=== PATIENT | male | born 1930 | race Caucasian/White ===

== ENCOUNTER 2018-11-23 23:24 | Observation (INO) | payer MEDICARE, MEDICAID ==
--- NOTE | 2018-11-23 23:55 | EDM.PDOC ---
ED HPI GENERAL MEDICAL PROBLEM - General Chief Complaint: General Stated Complaint: WEAKNESS Time Seen by Provider: 11/23/18 23:24 Source of Information: Reports: Patient, EMS History Limitations: Reports: Physical Impairment - History of Present Illness INITIAL COMMENTS - FREE TEXT/NARRATIVE: 88 y.o.w.m with H/O Sleep apnea, Chronic renal insufficiency, came to the ed by ems after he was found next to his bed on the floor. He could not getup by himself, called for help and the ems as well. Pt is a poor historian and could not describe what happened,. His stated, Pt defecated while on the floor or before that . On arrival, pt denied and pain. pt was Ox3, was able to hold his upper and lower extremity up for 5 seconds, showed, however, some weakness at his left lower extremity. No other acute medical issues. BP 145/78 RR 18 Pulse ox on RA 96%, Pulse 82 Temp 36.8 Onset Date: 11/23/18 Onset Time: 18:00 Duration: Hour(s): Location: Reports: Generalized Severity: Moderate Improves with: Reports: Rest Worsens with: Reports: Movement Context: Reports: Other (OBESITY, WEAKNESS) Associated Symptoms: Reports: Weakness Bilateral Knee Pain Score (Numeric/FACES): 4 - Related Data Allergies Allergy/AdvReac Type Severity Reaction Status Date / Time No Known Allergies Allergy Verified 11/24/18 01:04 Home Meds: Home Meds Calcitriol 0.25 mcg PO MOWEFR 11/24/18 [History] Chlorthalidone 25 mg PO DAILY 11/24/18 [History] Furosemide 20 mg PO DAILY 11/24/18 [History] Metoprolol Succinate [Toprol XL] 25 mg PO DAILY 11/24/18 [History] Potassium Chloride [Klor-Con 10] 10 meq PO DAILY 11/24/18 [History] ED ROS GENERAL - Review of Systems Review Of Systems: See Below Constitutional: Reports: Weakness, Weight Gain HEENT: Reports: No Symptoms Respiratory: Reports: No Symptoms Cardiovascular: Reports: No Symptoms Endocrine: Reports: No Symptoms GI/Abdominal: Reports: No Symptoms : Reports: No Symptoms Musculoskeletal: Reports: No Symptoms Skin: Reports: No Symptoms Neurological: Reports: Difficulty Walking, Gait Disturbance Psychiatric: Reports: No Symptoms Hematologic/Lymphatic: Reports: No Symptoms Immunologic: Reports: No Symptoms ED EXAM, GENERAL - Physical Exam Exam: See Below Exam Limited By: No Limitations General Appearance: Alert, WD/WN, Obese (MORBID) Eye Exam: Bilateral Eye: Normal Inspection Ears: Normal External Exam Ear Exam: Bilateral Ear: Auricle Normal Nose: Normal Inspection, Normal Mucosa, No Blood Throat/Mouth: Normal Inspection, Normal Lips, Normal Voice, No Airway Compromise Head: Atraumatic, Normocephalic Neck: Normal Inspection, Supple, Non-Tender, Full Range of Motion Respiratory/Chest: No Respiratory Distress, Lungs Clear (POOR INSP EFFORT) Cardiovascular: Normal Peripheral Pulses, Regular Rate, Rhythm, No Edema, No Gallop, No JVD Peripheral Pulses: 2+: Brachial (L) GI/Abdominal: Normal Bowel Sounds, Soft, Non-Tender, No Abnormal Bruit, No Mass , Pelvis Stable (Male) Exam: Deferred Rectal (Males) Exam: Deferred Back Exam: Normal Inspection, Full Range of Motion Extremities: Normal Inspection, Normal Range of Motion Neurological: Alert, Oriented, CN II-XII Intact, Normal Cognition, Abnormal Gait Psychiatric: Normal Affect, Normal Mood Skin Exam: Warm, Dry, Intact, Normal Color, No Rash Lymphatic: No Adenopathy EKG INTERPRETATION EKG Date: 11/24/18 Time: 00:25 Rhythm: NSR Rate (Beats/Min): 73 [place]: Normal P-Wave: Present QRS: Normal ST-T: Normal QT: Normal Comparison: NA - No Prior EKG Course - Vital Signs Text/Narrative:: 88 y.o.w.m with H/O Sleep apnea, Chronic renal insufficiency, came to the ed by ems after he was found next to his bed on the floor. He could not getup by himself, called for help and the ems as well. Pt is a poor historian and could not describe what happened,. His stated, Pt defecated while on the floor or before that . On arrival, pt denied and pain. pt was Ox3, was able to hold his upper and lower extremity up for 5 seconds, showed, however, some weakness at his left lower extremity. No other acute medical issues. BP 145/78 RR 18 Pulse ox on RA 96%, Pulse 82 Temp 36.8 PE: Morbid obese 88 y.o.w.m with clear lungs but poor inspirations and weakness left lower extremity, unsteady gate, Finger nose test nl Imaging: CT Head and CXR: NAD MRI: Pending Labs: CBC nl except HGB was 16.7 BMP: GFR 36 BUN 21 Cr 1.8 Troponin 0.017 Glc 168 Lactic acid 1.8 UA: Microcytic hematuria Impression: fall, unsteady gate gen weakness, morbid obesity Tx: Duoneb Reexam: Pt was unsteady when attempted to ambulate, he was dragging his left leg Plan: Admit for observation, MRI head/neck was ordered. Last Recorded V/S: Last Vital Signs Temp 36.7 C 11/24/18 05:28 Pulse 75 11/24/18 05:28 Resp 18 11/24/18 05:28 BP 151/68 H 11/24/18 05:28 Pulse Ox 92 L 11/24/18 05:28 - Orders/Labs/Meds Orders: Active Orders 24 hr Category Date Time Status EKG Documentation Completion [RC] ASDIRECTED Care 11/23/18 23:53 Active RT Aerosol Therapy [RC] ASDIRECTED Care 11/24/18 01:13 Active Chest 1V Frontal [CR] Stat Exams 11/24/18 01:18 Taken Head wo Cont [CT] Stat Exams 11/23/18 23:51 Taken EKG 12 Lead [EK] Routine Ther 11/23/18 23:51 Ordered Labs: Laboratory Tests 11/23/18 11/23/18 11/23/18 Range/Units 23:40 23:59 23:59 WBC 11.9 (4.5-12.0) X10-3/uL RBC 5.45 (4.30-5.75) x10(6)uL Hgb 16.7 H (11.5-15.5) g/dL Hct 50.1 (30.0-51.3) % MCV 91.9 (80-96) fL MCH 30.7 (27.7-33.6) pg MCHC 33.4 (32.2-35.4) g/dL RDW 12.6 (11.5-15.5) % Plt Count 206 (125-369) X10(3)uL MPV 9.2 (7.4-10.4) fL Add Manual Diff Yes Neutrophils % (Manual) 80 (46-82) % Band Neutrophils % 8 H (0-6) % Lymphocytes % (Manual) 6 L (13-37) % Monocytes % (Manual) 4 (4-12) % Eosinophils % (Manual) 2 (0-5) % POC VBG pH (7.31-7.41) POC VBG pCO2 (41-51) mmHG POC VBG HCO3 (23-28) mmol/L POC VBG Total CO2 (24-29) mmol/L POC VBG Base Excess (-2-3) mmol/L Sodium 140 (135-145) mmol/L Potassium 4.1 (3.5-5.3) mmol/L Chloride 103 (100-110) mmol/L Carbon Dioxide 27 (21-32) mmol/L BUN 21 H (7-18) mg/dL Creatinine 1.8 H (0.70-1.30) mg/dL Est Cr Clr Drug Dosing TNP Estimated GFR (MDRD) 36 L (>60) BUN/Creatinine Ratio 11.7 (9-20) Glucose 168 H (80-116) mg/dL Lactic Acid (0.4-2.2) mmol/L Calcium 9.1 (8.6-10.2) mg/dL Creatine Kinase 34 L (60-160) IU/L Troponin I (<0.017-0.056) ng/mL Urine Color Yellow (YELLOW) Urine Appearance Clear (CLEAR) Urine pH 5.0 (5.0-6.5) Ur Specific [place] 1.020 (1.010-1.025) Urine Protein Negative (NEGATIVE) mg/dL Urine Glucose (UA) Normal (NEGATIVE) mg/dL Urine Ketones Negative (NEGATIVE) mg/dL Urine Occult Blood Moderate H (NEGATIVE) Urine Nitrite Negative (NEGATIVE) Urine Bilirubin Negative (NEGATIVE) Urine Urobilinogen Normal (NEGATIVE) mg/dL Ur Leukocyte Esterase Negative (NEGATIVE) Urine RBC 5-10 (0) Urine WBC 0-5 (0) Ur Squamous Epith Cells Rare (NS,R,O) Urine Bacteria Few H (NS) 11/23/18 11/23/18 11/24/18 Range/Units 23:59 23:59 01:42 WBC (4.5-12.0) X10-3/uL RBC (4.30-5.75) x10(6)uL Hgb (11.5-15.5) g/dL Hct (30.0-51.3) % MCV (80-96) fL MCH (27.7-33.6) pg MCHC (32.2-35.4) g/dL RDW (11.5-15.5) % Plt Count (125-369) X10(3)uL MPV (7.4-10.4) fL Add Manual Diff Neutrophils % (Manual) (46-82) % Band Neutrophils % (0-6) % Lymphocytes % (Manual) (13-37) % Monocytes % (Manual) (4-12) % Eosinophils % (Manual) (0-5) % POC VBG pH 7.32 (7.31-7.41) POC VBG pCO2 43.6 (41-51) mmHG POC VBG HCO3 22.3 L (23-28) mmol/L POC VBG Total CO2 24 (24-29) mmol/L POC VBG Base Excess -4 L (-2-3) mmol/L Sodium (135-145) mmol/L Potassium (3.5-5.3) mmol/L Chloride (100-110) mmol/L Carbon Dioxide (21-32) mmol/L BUN (7-18) mg/dL Creatinine (0.70-1.30) mg/dL Est Cr Clr Drug Dosing Estimated GFR (MDRD) (>60) BUN/Creatinine Ratio (9-20) Glucose (80-116) mg/dL Lactic Acid 1.7 (0.4-2.2) mmol/L Calcium (8.6-10.2) mg/dL Creatine Kinase (60-160) IU/L Troponin I < 0.017 L (<0.017-0.056) ng/mL Urine Color (YELLOW) Urine Appearance (CLEAR) Urine pH (5.0-6.5) Ur Specific [place] (1.010-1.025) Urine Protein (NEGATIVE) mg/dL Urine Glucose (UA) (NEGATIVE) mg/dL Urine Ketones (NEGATIVE) mg/dL Urine Occult Blood (NEGATIVE) Urine Nitrite (NEGATIVE) Urine Bilirubin (NEGATIVE) Urine Urobilinogen (NEGATIVE) mg/dL Ur Leukocyte Esterase (NEGATIVE) Urine RBC (0) Urine WBC (0) Ur Squamous Epith Cells (NS,R,O) Urine Bacteria (NS) Meds: Medications Discontinued Medications Generic Name Dose Route Start Last Admin Trade Name Freq PRN Reason Stop Dose Admin Albuterol/Ipratropium 3 ml 11/24/18 01:12 11/24/18 01:28 Duoneb 3.0-0.5 Mg/3 Ml NEB 11/24/18 01:13 3 ml ONETIME ONE Administration Lactated Ringer's 1,000 mls @ 75 mls/hr 11/24/18 01:15 Ringers, Lactated IV ASDIRECTED YESIKA Sodium Chloride 1,000 mls @ 75 mls/hr 11/24/18 01:30 11/24/18 00:35 Normal Saline IV 75 mls/hr ASDIRECTED YESIKA Administration Departure - Departure Time of Disposition: 01:53 Disposition: Refer to Observation Condition: Fair Clinical Impression: Unsteady gait - Discharge Information - My Orders Last 24 Hours: My Active Orders 11/23/18 23:51 Head wo Cont [CT] Stat EKG 12 Lead [EK] Routine 11/23/18 23:53 EKG Documentation Completion [RC] ASDIRECTED 11/24/18 01:13 RT Aerosol Therapy [RC] ASDIRECTED 11/24/18 01:18 Chest 1V Frontal [CR] Stat - Assessment/Plan Last 24 Hours: My Active Orders 11/23/18 23:51 Head wo Cont [CT] Stat EKG 12 Lead [EK] Routine 11/23/18 23:53 EKG Documentation Completion [RC] ASDIRECTED 11/24/18 01:13 RT Aerosol Therapy [RC] ASDIRECTED 11/24/18 01:18 Chest 1V Frontal [CR] Stat
[2018-11-24] MEDS ORDERED: Albuterol/Ipratropium 3.0-0.5 MG/3 ML Neb Soln NEB ONE (01:12)
[2018-11-24] MEDS ORDERED: Lactated Ringers 1,000 ML IV SCH (01:15)
[2018-11-24] MEDS ORDERED: Sodium Chloride 0.9% 1,000 ML IV SCH (01:30)
[2018-11-24] MEDS ORDERED: Chlorthalidone 25 MG Tab PO SCH (09:00)
[2018-11-24] MEDS: Potassium Chloride 10 MEQ Tab.ER *PTOM PO SCH (09:42)
[2018-11-24] MEDS: Clopidogrel 75 MG Tab PO SCH (09:42)
[2018-11-24] MEDS: Furosemide 40 MG Tab *PTOM PO SCH (09:43)
[2018-11-24] MEDS: Metoprolol Succinate 25 MG Tab.ER *PTOM PO SCH ×2 (10:15→20:42)
--- NOTE | 2018-11-24 10:39 | HP ---
ADMISSION DATE: 11/24/2018 CHIEF COMPLAINT: Fall and could not get up. HISTORY OF PRESENT ILLNESS: Sampson is an 88-year-old man from [place] with a history of hypertension, chronic kidney disease, chronic congestive heart failure, and a remote history of MS. According to the patient, he says he fell down and could not get up. He is not quite clear on the details, but states he has never fallen and not been able to get up before. He denied focal weakness. He denied headache, fever, chills, or symptoms of recent infection. PAST MEDICAL HISTORY: As mentioned, remote history of MS. No symptom exacerbation for many years. 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 He is status post DVT in 2017. He also has history of a thyroid mass documented on neck ultrasound, but as of yet, he has declined surgical intervention on this. He has osteoarthritis of both knees and a history of GERD. He has had kidney stones in the past. MEDICATIONS: 1. Toprol-XL 25 one daily. 2. Allopurinol 100 mg daily. 3. Rocaltrol 0.25 mg Saturday, Saturday, Saturday. 4. Potassium 10 mEq daily. 5. Vitamin D3 1000 units twice a day. 6. Furosemide 80 mg daily. 7. Aspirin 81 mg daily. ALLERGIES: None known. HABITS: Nonsmoker, nondrinker. FAMILY AND SOCIAL HISTORY: The patient is . He lives with his in [place] and they are retired. REVIEW OF SYSTEMS: GENERAL: No seizure, syncope, or recent significant weight change. SKIN: Negative for rash. HEENT: No recent changes in hearing or vision. No sore throat or URI. No cough or purulent sputum. No chest pain or palpitations. No abdominal pain, nausea, diarrhea, or constipation. No hematochezia or melena. No hematuria or UTI symptoms. No joint inflammation, swelling, skin rash, or mood instability. PHYSICAL EXAMINATION: GENERAL: He is alert and comfortable. He is somewhat forgetful for details. VITAL SIGNS: Blood pressure 151/68, pulse 75 and regular, respirations 18, temp 98.1, O2 saturation 92% on room air. SKIN: Anicteric, warm, dry without rash. HEENT: Show clear TMs. Pupils are equal and reactive. Oropharynx is clear. NECK: Supple. LUNGS: Clear in the left. He has rales at the right lower one-third. HEART: Regular without murmur or gallop. ABDOMEN: Obese, soft, nontender. No masses. No organomegaly. EXTREMITIES: Show no edema of the ankles. NEUROLOGIC: Mental status shows him to be mildly forgetful. Motor exam appears symmetric. He is assisted to walking and does get up without assistance, makes a loop walking in the room with a slightly broad-based gait. He is able to get up on both tip toes and dorsiflex both feet equally. LABORATORY DATA: White count 11,900, hemoglobin 16.7, 80 segs, 8 bands, 6 lymphs, 4 monos. Electrolytes normal. BUN 21, creatinine 1.8, glucose 168. Red cells 5 to 10 with moderate occult blood in the urine. Chest x-ray negative. CT head normal for age. ASSESSMENT: 1. Fall with weakness, cause unclear, but when presenting in the emergency room, did have slight unilateral lower extremity weakness suggestive of transient ischemic attack. 2. Chronic congestive heart failure, compensated. 3. Chronic kidney disease, stage 3, stable. 4. Osteoarthritis of the knees. 5. Remote history of multiple sclerosis. 6. Undefined thyroid mass. 7. Mild cognitive deficits. 8. Past history of deep venous thrombosis. Cardiac PET scan May 2018 done for chest pain was normal. PLAN: We will continue to monitor vital signs. Consider MRI of the head. We will ultrasound his carotid arteries. He has had echocardiogram done 1 year ago showing normal left ventricular systolic function, moderate aortic insufficiency, and mildly dilated ascending aorta. Persantine Cardiolite study completed May 2018 was negative for ischemic changes. We will continue to provide palliative care measures for his underlying osteoarthritis, decreased mobility, baseline MS. Anticipate discharge to home within 24 to 48 hours. /[id number] SHANTELL/DINA
[2018-11-25] MEDS: Potassium Chloride 10 MEQ Tab.ER *PTOM PO SCH (08:04)
[2018-11-25] MEDS: Furosemide 40 MG Tab *PTOM PO SCH (08:04)
[2018-11-25] MEDS: Metoprolol Succinate 25 MG Tab.ER *PTOM PO SCH (08:06)
[2018-11-25] MEDS: Clopidogrel 75 MG Tab PO SCH (08:06)
--- NOTE | 2018-11-25 09:49 | DISCH ---
DISCHARGE DATE: 11/25/2018 PRIMARY FINAL DIAGNOSIS: Transient ischemic attack with fall and weakness. OTHER DIAGNOSES: Chronic congestive heart failure, chronic essential hypertension, chronic kidney disease stage 3, multiple sclerosis, osteoarthritis, thyroid mass. OPERATIONS: None. COMPLICATIONS: None. SUMMARY: Shaun is an 88-year-old man from [place] with the above problems, who came in after being unable to get up after falling down without assistance. The ambulance was summoned. He was brought to the ER and he was found to be generally weak and unsteady on his feet with a slight limp. He appeared to drag his left leg slightly when he walked in the emergency room. Admission lab was positive for creatinine of 1.8. Negative troponin. Normal CBC. CT of the head showed no sign of an acute stroke. He was observed overnight with vital signs, Plavix was added to his medications, and by the next morning, he was stable, up walking. He had a very slightly broad-based and unsteady gait. No demonstrable focal weakness was noted. Shaun is discharged to home in good condition. He is to return tomorrow for a followup ultrasound of his carotid arteries. It was elected to withhold dye or contrast studies while here, such as CT angiogram of the neck because of his poor renal function. MEDICATIONS ON DISCHARGE: 1. Potassium 10 mEq daily. 2. Furosemide 60 mg daily. 3. Docusate 100 mg at bedtime. 4. Plavix 75 mg daily. 5. Vitamin D 1000 units b.i.d. 6. Aspirin 81 mg daily. 7. Allopurinol 100 mg daily. 8. Metoprolol 25 mg b.i.d. 9. Calcitriol 0.25 mcg Saturday, Saturday, Saturday. FOLLOWUP: Followup appointment with Dr. Salamanca in 7-10 days. /[id number] SHANTELL/DINA
== END 2018-11-25 10:05 | disposition home or self-care (01) ==
LOC: FB.ED 23:24 → FB.MS 11-24 01:54
PROVIDERS: ADMIT Emergency Medicine; ATTEND Family Medicine
DX: G45.9 Transient cerebral ischemic attack, unspecified (principal); I13.0 Hypertensive heart and chronic kidney disease with heart failure and stage 1 through stage 4 chronic kidney disease, or unspecified chronic kidney disease; I50.9 Heart failure, unspecified; N18.3 Chronic kidney disease, stage 3 (moderate); N25.81 Secondary hyperparathyroidism of renal origin; G35 Multiple sclerosis; M17.0 Bilateral primary osteoarthritis of knee; Z86.718 Personal history of other venous thrombosis and embolism; Z79.82 Long term (current) use of aspirin; Z79.899 Other long term (current) drug therapy
CPT/HCPCS: 36415; 51798; 70450; 71045; 80048; 81001; 82550; 82803; 83605; 84484; 85025; 85610; 93005; 93010; 94640; 96360; 99284; 99285; A9270; G0378; J7030; J7620-GY

== ENCOUNTER 2021-09-11 09:47 | Emergency (ER) | payer MEDICARE, BC ==
[2021-09-11] MEDS ORDERED: Metoprolol Succinate 25 MG Tab.ER PO ONE (10:17)
--- NOTE | 2021-09-11 10:26 | EDM.PDOC ---
ED HPI GENERAL MEDICAL PROBLEM - General Chief Complaint: ENT Problem Stated Complaint: NOSE BLEED Time Seen by Provider: 09/11/21 09:55 Source of Information: Reports: Patient, Family History Limitations: Reports: No Limitations - History of Present Illness INITIAL COMMENTS - FREE TEXT/NARRATIVE: Patient presented to the Ed because of a right sided nasal bleed. He is on plavix due to a previous stroke. He tried to apply pressure but still keeps bleeding. - Related Data Allergies Allergy/AdvReac Type Severity Reaction Status Date / Time No Known Allergies Allergy Verified 11/24/18 01:04 Home Meds: Home Meds Cholecalciferol (Vitamin D3) [Vitamin D3] 1,000 unit PO BID 11/24/18 [History] Furosemide 60 mg PO DAILY 11/24/18 [History] Metoprolol Succinate [Toprol XL] 25 mg PO BID 11/24/18 [History] allopurinoL [Zyloprim] 100 mg PO BEDTIME 11/24/18 [History] calcitrioL [Calcitriol] 0.25 mcg PO MOWEFR 11/24/18 [History] Clopidogrel [Plavix] 75 mg PO DAILY #30 tablet 11/25/18 [Rx] Potassium Chloride [Klor-Con 10] 10 meq PO DAILY #90 tab.er 11/25/18 [Rx] Past Medical History Cardiovascular History: Reports: Heart Failure Genitourinary History: Reports: Other (See Below) Other Genitourinary History: Stage 3 renal failure Other Musculoskeletal History: MS - Infectious Disease History Infectious Disease History: Reports: Chicken Pox, Measles, Mumps - Past Surgical History Male Surgical History: Reports: None Social & Family History - Family History Family Medical History: No Pertinent Family History - Tobacco Use Tobacco Use Status *Q: Never Tobacco User - Caffeine Use Caffeine Use: Reports: Soda - Recreational Drug Use Recreational Drug Use: No ED ROS ENT - Review of Systems Review Of Systems: See Below Constitutional: Reports: No Symptoms HEENT: Reports: Nosebleed Respiratory: Reports: No Symptoms Cardiovascular: Reports: No Symptoms Endocrine: Reports: No Symptoms GI/Abdominal: Reports: No Symptoms : Reports: No Symptoms Musculoskeletal: Reports: No Symptoms Skin: Reports: No Symptoms Neurological: Reports: No Symptoms Psychiatric: Reports: No Symptoms ED EXAM, ENT - Physical Exam Exam: See Below Exam Limited By: No Limitations General Appearance: Alert, No Apparent Distress Ears: Normal External Exam, Normal Canal, Hearing Grossly Normal, Normal TMs Nose: Normal Inspection, Normal Mucousa, No Blood Mouth/Throat: Normal Inspection, Normal Gums, Normal Lips, Bleeding Head: Atraumatic, Normocephalic Neck: Normal Inspection Respiratory/Chest: No Respiratory Distress, Lungs Clear, Normal Breath Sounds, No Accessory Muscle Use, Chest Non-Tender Cardiovascular: Normal Peripheral Pulses, Regular Rate, Rhythm, No Edema, No Gallop, No JVD, No Murmur, No Rub GI/Abdominal: Normal Bowel Sounds, Soft, Non-Tender, No Organomegaly, No Distention, No Abnormal Bruit, No Mass Back: Normal Inspection, Full Range of Motion Extremities: Normal Inspection, Normal Range of Motion, Non-Tender, No Pedal Edema, Normal Capillary Refill Neurological: Alert, Oriented, CN II-XII Intact, Normal Cognition, Normal Gait, Normal Reflexes, No Motor/Sensory Deficits Psychiatric: Normal Affect Course - Vital Signs Text/Narrative:: Nasal pack(rhino pack) applied by ED physician Clonidine 0.1 mg PO x1 Metoprolol succinate 25 mg PO x1 Last Recorded V/S: Last Vital Signs Temp 36.4 C 09/11/21 09:50 Pulse 66 09/11/21 09:50 Resp 20 09/11/21 09:50 BP 159/73 H 09/11/21 09:50 Pulse Ox 96 09/11/21 09:50 - Orders/Labs/Meds Orders: Active Orders 24 hr Category Date Time Status cloNIDine [Catapres] Med 09/11/21 10:30 Ordered 0.2 mg PO DAILY Medication Orders Clonidine HCl (Clonidine 0.1 Mg Tab) 0.2 mg PO DAILY YESIKA Meds: Medications Generic Name Dose Route Start Last Admin Trade Name Freq PRN Reason Stop Dose Admin Clonidine HCl 0.2 mg 09/11/21 10:30 Clonidine 0.1 Mg Tab PO DAILY YESIKA Discontinued Medications Generic Name Dose Route Start Last Admin Trade Name Freq PRN Reason Stop Dose Admin Metoprolol Succinate 25 mg 09/11/21 10:17 Metoprolol Succinate 25 Mg Tab.Er PO 09/11/21 10:18 ONETIME ONE Departure - Departure Time of Disposition: 11:00 Disposition: Home, Self-Care 01 Condition: Good Clinical Impression: Epistaxis - Discharge Information Instructions: Nosebleed, Adult, [id number] Referrals: PCP,None [Primary Care Provider] - Additional Instructions: Please read discharge instructions on nose bleed Do not take your plavix for 3 days No aspirin,. aleve, ibuprofen for 1 week Skip your morning dose of metoprolol Deflate the nasal pack after 24 hours with a syringe as directed then gently pull the nasal pack Follow up as needed Sepsis Event Note (ED) - Evaluation Sepsis Screening Result: No Definite Risk - Focused Exam Vital Signs: Vital Signs Temp Pulse Resp BP Pulse Ox 09/11/21 09:50 36.4 C 66 20 159/73 H 96 - My Orders Last 24 Hours: My Active Orders 09/11/21 10:30 cloNIDine [Catapres] 0.2 mg PO DAILY - Assessment/Plan Last 24 Hours: My Active Orders 09/11/21 10:30 cloNIDine [Catapres] 0.2 mg PO DAILY
[2021-09-11] MEDS ORDERED: cloNIDine 0.1 MG Tab PO SCH (10:30)
[2021-09-11] MEDS ORDERED: cloNIDine 0.1 MG Tab PO STA (10:31)
== END 2021-09-11 10:45 | disposition home or self-care (01) ==
LOC: FB.ED 09:47
DX: R04.0 Epistaxis (principal); I50.9 Heart failure, unspecified; G35 Multiple sclerosis; N18.30 Chronic kidney disease, stage 3 unspecified; Z79.899 Other long term (current) drug therapy
CPT/HCPCS: 30903; 99283; A9270

== ENCOUNTER 2022-03-05 15:53 | Emergency (ER) | payer MEDICARE, BC ==
[2022-03-05] MEDS ORDERED: Sodium Chloride 0.9% 10 ML Syringe FLUSH PRN (16:22)
== END 2022-03-05 18:35 | disposition home or self-care (01) ==
LOC: FB.ED 15:53
DX: F03.91 Unspecified dementia, unspecified severity, with behavioral disturbance (principal); I13.0 Hypertensive heart and chronic kidney disease with heart failure and stage 1 through stage 4 chronic kidney disease, or unspecified chronic kidney disease; N18.30 Chronic kidney disease, stage 3 unspecified; I50.9 Heart failure, unspecified; M10.9 Gout, unspecified; G35 Multiple sclerosis; Z79.02 Long term (current) use of antithrombotics/antiplatelets; Z79.899 Other long term (current) drug therapy; Z20.822 Contact with and (suspected) exposure to COVID-19
CPT/HCPCS: 36415; 70450; 71045; 80053; 81001; 83735; 84484; 85025; 93005; 93010; 99285; 99285-25; U0002